=== PATIENT | male | born 1995 | race Caucasian/White ===

== ENCOUNTER 2017-07-06 16:41 | Emergency (ER) | payer BC ==
[2017-07-06] MEDS ORDERED: Norflex 60 MG/2 ML IM ONE (17:06)
[2017-07-06] MEDS ORDERED: DECADRON 10MG INJ. ONE (17:09)
[2017-07-06] MEDS ORDERED: Norflex 60 MG/2 ML ONE (17:09)
[2017-07-06] MEDS: DECADRON 10MG INJ. IM ONE ×2 (17:12→17:13)
--- NOTE | 2017-07-06 17:28 | ERPHSYRPT ---
- History of Present Illness Time Seen by Provider: 07/06/17 16:47 Source: patient, family (mother) Exam Limitations: no limitations Patient Subjective Stated Complaint: tensed up causing pain in posterior neck. denies direct injury.. pain with turning head. Triage Nursing Assessment: staes was upset and tensed up neck. noted difficutly turning head left and right. no direct injury to the neck. staes ariel on palpation to posterionr neck. noted generalized rash to torso. mother states has been there for years but do not have a diagnosos for what it is. denies itching. Physician History: patient upset and workign out and felt his neck tighten up; no injury or fall; no numbness or paraesthsias; some tightness and discomfort with extreme extention or rotation to leftl; prior hx of neck strain Timing/Duration: today, hour(s) (2-3 hrs), gradual onset, improved (after mortin ) Method of Injury: prior injury, twisted Quality: cramping Back Pain Location: C-spine Severity of Pain-Max: moderate Severity of Pain-Current: mild Modifying Factors: Improves With: immobilization (helps), movement (aggravates) , pain medication (helps) Associated Symptoms: muscle spasms, No urinary incontinence, No loss of bowel control, No problems urinating, No numbness in legs/feet, No weakness, No sensory/motor loss, No tingling in legs/feet, No lower back pain Previous symptoms: same symptoms as today Allergies/Adverse Reactions: No Known Drug Allergies Allergy (Verified 07/06/17 17:04) Home Medications: Sertraline HCl [Zoloft] 50 mg PO DAILY 12/28/14 [History] Hx Tetanus, Diphtheria Vaccination/Date Given: Yes Hx Influenza Vaccination/Date Given: No Hx Pneumococcal Vaccination/Date Given: No Immunizations Up to Date: Yes - Review of Systems Constitutional: No Symptoms Eyes: No Symptoms Ears, Nose, & Throat: No Symptoms Respiratory: No Cough, No Dyspnea, No Wheezing Cardiac: No Chest Pain, No Palpitations, No Syncope Abdominal/Gastrointestinal: No Abdominal Pain, No Nausea, No Vomiting, No Diarrhea Genitourinary Symptoms: No Frequency, No Hematuria, No Incontinence, No Urinary Retention Musculoskeletal: Neck Pain, No Arthralgias, No Back Pain, No Fall, No Myalgias Skin: Rash (x 1 year), No Cellulitis, No Induration Neurological: No Focal Weakness, No Headache, No Paralysis, No Parasthesia, No Sensory Changes Psychological: No Symptoms Endocrine: No Symptoms Hematologic/Lymphatic: No Symptoms Immunological/Allergic: No Symptoms - Past Medical History Pertinent Past Medical History: Yes Neurological History: No Pertinent History ENT History: No Pertinent History Cardiac History: No Pertinent History Respiratory History: Asthma Endocrine Medical History: No Pertinent History Musculoskeletal History: No Pertinent History GI Medical History: No Pertinent History History: No Pertinent History Psycho-Social History: Depression Male Reproductive Disorders: No Pertinent History - Past Surgical History Past Surgical History: Yes Musculoskeletal: Other Other Surgical History: states hip surgery x2 - Social History Smoking Status: Current some day smoker Exposure to second hand smoke: No Alcohol Use: Socially Drug Use: none Patient Lives Alone: No Significant Family History: no pertinent family hx - Nursing Vital Signs Nursing Vital Signs: Initial Vital Signs Temperature 97.8 F 07/06/17 16:50 Pulse Rate 70 07/06/17 16:50 Respiratory Rate 20 07/06/17 16:50 Blood Pressure 138/92 07/06/17 16:50 O2 Sat by Pulse Oximetry 98 07/06/17 16:50 Pain Scale Pain Intensity 4 - Physical Exam General Appearance: mild distress, alert, thin Eye Exam: PERRL/EOMI, eyes nml inspection Ears, Nose, Throat Exam: normal ENT inspection, TMs normal, pharynx normal, moist mucous membranes Neck Exam: normal inspection, non-tender, supple, full range of motion (some discomfort at extrem extention or rotation to left), No meningismus, No carotid bruit, No JVD, No limited range of motion, No subcutaneous emphysema, No midline tenderness Respiratory Exam: normal breath sounds, lungs clear, airway intact, No chest tenderness, No respiratory distress Cardiovascular Exam: regular rate/rhythm, normal heart sounds, normal peripheral pulses, capillary refill <2 sec, No murmur Gastrointestinal Exam: soft, normal bowel sounds, No tenderness, No organomegaly Rectal Exam: deferred Back Exam: normal inspection, normal range of motion, No CVA tenderness, No vertebral tenderness Extremity Exam: normal inspection, normal range of motion, No sugey's sign, No pedal edema Peripheral Pulses: carotid (R): 4+, carotid (L): 4+, femoral (R): 4+, femoral (L ): 4+ Neurologic Exam: alert, oriented x 3, cooperative, medical staff physician II-XII nml as tested, normal mood/affect, nml cerebellar function, nml station & gait, sensation nml, No motor deficits Skin Exam: normal color, warm, dry, rash (diffuse ptariasis rosacea), No petechiae SpO2 Interpretation: normal SpO2: 98 Oxygen Delivery: Room Air - Course Nursing assessment & vital signs reviewed: Yes Ordered Tests: Active Orders 24 hr Category Date Time Status Cold Application STAT Care 07/06/17 17:07 Active Re-Check Vital Signs STAT Care 07/06/17 17:06 Active Medication Summary Discontinued Medications Generic Name Dose Route Start Last Admin Trade Name Freq PRN Reason Stop Dose Admin Dexamethasone Sodium Phosphate 10 mg 07/06/17 17:06 07/06/17 17:13 Decadron 10mg Inj. IM 07/06/17 17:07 10 mg STAT ONE Administration Dexamethasone Sodium Phosphate Confirm 07/06/17 17:09 Decadron 10mg Inj. Administered 07/06/17 17:10 Dose 10 mg .ROUTE .STK-MED ONE Orphenadrine Citrate 60 mg 07/06/17 17:06 07/06/17 17:19 Norflex 60 Mg/2 Ml IM 07/06/17 17:07 60 mg STAT ONE Administration Orphenadrine Citrate Confirm 07/06/17 17:09 Norflex 60 Mg/2 Ml Administered 07/06/17 17:10 Dose 60 mg .ROUTE .STK-MED ONE - Progress Progress: improved (after meds), pain not gone completely, re-examined (after meds) Progress Note: 07/06/17 17:28 medicated; mother at bedside; discussed rash ; will medicate and recheck 07/06/17 17:57 patient much improved post meds; treatment plan and instructions given Counseled pt/family regarding: diagnosis, need for follow-up - Departure Time of Disposition: 17:58 Departure Disposition: Home Clinical Impression: Neck muscle strain Condition: Stable Critical Care Time: No Referrals: TEN PARRISH NP [Primary Care Provider] - Instructions: Cervical Strain Additional Instructions: rest- no work 24 hours; RICE continue motirn prn Back pain instructions. Rest, ice x 24-48 hours, then warm compresses; no heavy lifting (>20#'s) x 3-5 days; call [facility] or [facility] doctor in am for follow up appointment and or referral as needed. Return if problems. Take meds as prescribed. Follow-up with family doctor as directed. Call for appointment. Return if any problems. If you smoke please stop. Call or follow up with your family doctor for assistance if you need it to stop. Please wear your seatbelt when driving. Have a nice day. Thank you for allowing us to participate in your care today. :o) Dr Josias Colbert Prescriptions: Chlorzoxazone [Parafon Forte Dsc] 500 mg PO QID #20 tablet
[2017-07-06 18:12] VITALS: BP 110/66; PULSE 60; O2SAT 100
== END 2017-07-06 18:13 | disposition home or self-care (01) ==
LOC: ED 16:41
DX: S16.1XXA Strain of muscle, fascia and tendon at neck level, initial encounter (principal)
CPT/HCPCS: 96372; 99284; J1100; J2360

== ENCOUNTER 2021-03-02 00:54 | Emergency (ER) | payer BC ==
[2021-03-02 01:10] VITALS: O2SAT 99
[2021-03-02] MEDS ORDERED: Sodium Chloride 0.9% 1000 ML 1,000 ML IV STA ×2 (01:11→03:15)
--- NOTE | 2021-03-02 01:17 | ERPHSYRPT ---
- History of Present Illness Time Seen by Provider: 03/02/21 01:16 Historian: patient Physician History: Patient is a 25-year-old male presents to our ED with complaints of nausea vomiting diarrhea and mild right sided abdominal pain. Symptoms started today at approximately 8 PM. Emesis is nonbloody nonbilious. No trauma. No fever. No obvious sick contacts. Symptoms are mild to moderate in intensity. No specific worsening improving factors. Patient otherwise voices no other complaints or concerns at this time. Timing/Duration: today Activities at Onset: none Quality: aching Abdominal Pain Onset Location: RUQ, epigastric Pain Radiation: no radiation Severity of Pain-Max: moderate Severity of Pain-Current: mild Modifying Factors: Improves With: nothing Associated Symptoms: denies symptoms, No chest pain, No diaphoresis, No fever/chills, No headache, No loss of appetite, No shortness of breath, No weakness Previous symptoms: no prior history Allergies/Adverse Reactions: No Known Drug Allergies Allergy (Verified 03/02/21 01:27) Home Medications: Levothyroxine Sodium [Levothyroxine] 150 mcg PO DAILY 03/02/21 [History] Hx Tetanus, Diphtheria Vaccination/Date Given: Yes Hx Influenza Vaccination/Date Given: No Hx Pneumococcal Vaccination/Date Given: No - Review of Systems Constitutional: No Symptoms, No Fever, No Chills Eyes: No Symptoms Ears, Nose, & Throat: No Symptoms Respiratory: No Symptoms, No Cough, No Dyspnea Cardiac: No Symptoms, No Chest Pain, No Edema, No Syncope Abdominal/Gastrointestinal: No Symptoms, No Abdominal Pain, No Nausea, No Vomiting, No Diarrhea Genitourinary Symptoms: No Symptoms, No Dysuria Musculoskeletal: No Symptoms, No Back Pain, No Neck Pain Skin: No Symptoms, No Rash Neurological: No Dizziness, No Focal Weakness, No Sensory Changes Psychological: No Symptoms Endocrine: No Symptoms Hematologic/Lymphatic: No Symptoms Immunological/Allergic: No Symptoms All Other Systems: Reviewed and Negative - Past Medical History Pertinent Past Medical History: Yes Neurological History: No Pertinent History ENT History: No Pertinent History Cardiac History: No Pertinent History Respiratory History: Asthma Endocrine Medical History: No Pertinent History Musculoskeletal History: No Pertinent History GI Medical History: No Pertinent History History: No Pertinent History Psycho-Social History: Depression Male Reproductive Disorders: No Pertinent History - Past Surgical History Past Surgical History: Yes Musculoskeletal: Other Other Surgical History: states hip surgery x2 - Social History Smoking Status: Current some day smoker Exposure to second hand smoke: No Alcohol Use: Socially Drug Use: none Patient Lives Alone: No Significant Family History: no pertinent family hx - Nursing Vital Signs Nursing Vital Signs: Initial Vital Signs Temperature 98.3 F 03/02/21 01:09 Pulse Rate 96 H 03/02/21 01:09 Respiratory Rate 18 03/02/21 01:09 Blood Pressure 134/76 03/02/21 01:09 O2 Sat by Pulse Oximetry 99 03/02/21 01:09 Pain Scale Pain Intensity 4 - Physical Exam General Appearance: no apparent distress, alert Eye Exam: PERRL/EOMI, eyes nml inspection Ears, Nose, Throat Exam: normal ENT inspection, pharynx normal, moist mucous membranes Neck Exam: normal inspection, non-tender, supple, full range of motion Respiratory Exam: normal breath sounds, lungs clear, No respiratory distress Cardiovascular Exam: regular rate/rhythm, normal heart sounds Gastrointestinal/Abdomen Exam: soft, tenderness, other (Mild epigastric/right upper quadrant tenderness to palpation. No rebound. No guarding), No mass, No guarding, No pulsatile mass, No rebound, No hernia, No organomegaly, No splenomegaly Back Exam: normal inspection, normal range of motion, No CVA tenderness, No vert ebral tenderness Extremity Exam: normal inspection, normal range of motion, pelvis stable Neurologic Exam: alert, oriented x 3, cooperative, normal mood/affect, nml cerebellar function, sensation nml, No motor deficits Skin Exam: normal color, warm, dry SpO2 Interpretation: normal SpO2: 99 O2 Delivery: Room Air - Course Nursing assessment & vital signs reviewed: Yes - CT Exams Abdomen/Pelvis CT Interpretation: Tele-radiologist Report (Enteritis affecting the distal ileum moderate length of distal ileum with mild circumferential wall thickening and minimal mesenteric fat stranding. Relatively decompressed terminal ileum. Fluid in the ascending colon.) Ordered Tests: Active Orders 24 hr Category Date Time Status IV Insertion STAT Care 03/02/21 01:11 Active ABDOMEN AND PELVIS W CONTRAST [CT] Stat Exams 03/02/21 01:14 Taken CBC W DIFF Stat Lab 03/02/21 01:30 Completed CMP Stat Lab 03/02/21 01:30 Completed LIPASE Stat Lab 03/02/21 01:30 Completed TROPONIN Q3H Lab 03/02/21 01:30 Completed TROPONIN Q3H Lab 03/02/21 04:15 Ordered TROPONIN Q3H Lab 03/02/21 07:15 Ordered TROPONIN Q3H Lab 03/02/21 10:15 Ordered TROPONIN Q3H Lab 03/02/21 13:15 Ordered UA W/RFX UR CULTURE Stat Lab 03/02/21 02:39 Completed Medication Summary Generic Name Dose Route Start Last Admin Trade Name Freq PRN Reason Stop Dose Admin Sodium Chloride 1,000 mls @ 999 mls/hr 03/02/21 03:15 03/02/21 03:20 Sodium Chloride 0.9% 1000 Ml IV 03/02/21 04:15 999 mls/hr .Q1H1M STA Administration Discontinued Medications Generic Name Dose Route Start Last Admin Trade Name Freq PRN Reason Stop Dose Admin Sodium Chloride 1,000 mls @ 999 mls/hr 03/02/21 01:11 03/02/21 01:36 Sodium Chloride 0.9% 1000 Ml IV 03/02/21 02:11 999 mls/hr .Q1H1M STA Administration Sodium Chloride Confirm 03/02/21 01:34 Sodium Chloride 0.9% 1000 Ml Administered 03/02/21 01:35 Dose 1,000 mls @ ud .ROUTE .STK-MED ONE Sodium Chloride Confirm 03/02/21 03:17 Sodium Chloride 0.9% 1000 Ml Administered 03/02/21 03:18 Dose 1,000 mls @ ud .ROUTE .STK-MED ONE Lab/Rad Data: Laboratory Result Diagrams 03/02/21 01:30 03/02/21 01:30 Laboratory Results 03/02/21 03/02/21 03/02/21 Range/Units 02:39 01:30 01:30 WBC (4.0-10.5) K/mm3 RBC (4.1-5.6) M/mm3 Hgb (12.5-18.0) gm/dl Hct (42-50) % MCV (78-100) fl MCH (26-32) pg MCHC (32-36) g/dl RDW (11.5-14.0) % Plt Count (150-450) K/mm3 MPV (7.5-11.0) fl Gran % (36.0-66.0) % Eos # (Auto) (0-0.5) Absolute Lymphs (auto) (1.0-4.6) Absolute Monos (auto) (0.0-1.3) Lymphocytes % (24.0-44.0) % Monocytes % (0.0-12.0) % Eosinophils % (0.00-5.0) % Basophils % (0.0-0.4) % Absolute Granulocytes (1.4-6.9) Basophils # (0-0.4) Sodium 139 (137-145) mmol/L Potassium 3.8 (3.5-5.1) mmol/L Chloride 100 (98-107) mmol/L Carbon Dioxide 29 (22-30) mmol/L Anion Gap 14.2 (5-15) MEQ/L BUN 18 (9-20) mg/dL Creatinine 0.98 (0.66-1.25) mg/dL Estimated GFR > 60.0 ML/MIN Glucose 94 (74-106) mg/dL Calcium 10.5 H (8.4-10.2) mg/dL Total Bilirubin 0.70 (0.2-1.3) mg/dL AST 23 (17-59) U/L ALT 21 (0-50) U/L Alkaline Phosphatase 56 (38-126) U/L Troponin I < 0.012 (0.000-0.034) ng/mL Serum Total Protein 8.1 (6.3-8.2) g/dL Albumin 5.3 H (3.5-5.0) g/dL Lipase 122 (23-300) U/L Urine Color STRAW (YELLOW) Urine Appearance CLEAR (CLEAR) Urine pH 7.0 (5-6) Ur Specific Sidney >1.060 (1.005-1.025) Urine Protein NEGATIVE (Negative) Urine Ketones NEGATIVE (NEGATIVE) Urine Blood NEGATIVE (0-5) Cedric/ul Urine Nitrite NEGATIVE (NEGATIVE) Urine Bilirubin NEGATIVE (NEGATIVE) Urine Urobilinogen NEGATIVE (0-1) mg/dL Ur Leukocyte Esterase NEGATIVE (NEGATIVE) Urine WBC (Auto) NONE (0-5) /HPF Urine RBC (Auto) NONE (0-2) /HPF U Epithel Cells (Auto) NONE (FEW) /HPF Urine Bacteria (Auto) NONE (NEGATIVE) /HPF Urine Culture Reflexed NO (NO) Urine Glucose NEGATIVE (NEGATIVE) mg/dL 03/02/21 Range/Units 01:30 WBC 10.6 H (4.0-10.5) K/mm3 RBC 5.37 (4.1-5.6) M/mm3 Hgb 15.6 (12.5-18.0) gm/dl Hct 45.5 (42-50) % MCV 84.7 (78-100) fl MCH 29.1 (26-32) pg MCHC 34.3 (32-36) g/dl RDW 13.8 (11.5-14.0) % Plt Count 166 (150-450) K/mm3 MPV 11.4 H (7.5-11.0) fl Gran % 79.5 H (36.0-66.0) % Eos # (Auto) 0.14 (0-0.5) Absolute Lymphs (auto) 1.17 (1.0-4.6) Absolute Monos (auto) 0.84 (0.0-1.3) Lymphocytes % 11.0 L (24.0-44.0) % Monocytes % 7.9 (0.0-12.0) % Eosinophils % 1.3 (0.00-5.0) % Basophils % 0.3 (0.0-0.4) % Absolute Granulocytes 8.43 H (1.4-6.9) Basophils # 0.03 (0-0.4) Sodium (137-145) mmol/L Potassium (3.5-5.1) mmol/L Chloride (98-107) mmol/L Carbon Dioxide (22-30) mmol/L Anion Gap (5-15) MEQ/L BUN (9-20) mg/dL Creatinine (0.66-1.25) mg/dL Estimated GFR ML/MIN Glucose (74-106) mg/dL Calcium (8.4-10.2) mg/dL Total Bilirubin (0.2-1.3) mg/dL AST (17-59) U/L ALT (0-50) U/L Alkaline Phosphatase (38-126) U/L Troponin I (0.000-0.034) ng/mL Serum Total Protein (6.3-8.2) g/dL Albumin (3.5-5.0) g/dL Lipase (23-300) U/L Urine Color (YELLOW) Urine Appearance (CLEAR) Urine pH (5-6) Ur Specific Sidney (1.005-1.025) Urine Protein (Negative) Urine Ketones (NEGATIVE) Urine Blood (0-5) Cedric/ul Urine Nitrite (NEGATIVE) Urine Bilirubin (NEGATIVE) Urine Urobilinogen (0-1) mg/dL Ur Leukocyte Esterase (NEGATIVE) Urine WBC (Auto) (0-5) /HPF Urine RBC (Auto) (0-2) /HPF U Epithel Cells (Auto) (FEW) /HPF Urine Bacteria (Auto) (NEGATIVE) /HPF Urine Culture Reflexed (NO) Urine Glucose (NEGATIVE) mg/dL - Progress Progress: improved Progress Note: Patient reassessed. He feels well. Patient hydrated. Patient tolerated p.o. Work-up reveals a leukocytosis with an enteritis. There is also nonspecific splenic lesion. Will discharge home. Work note provided. Patient agrees to follow-up with his primary care doctor within 48 hours for reevaluation. 03/02/21 03:34 Counseled pt/family regarding: lab results, diagnosis, rad results - Departure Departure Disposition: Home Clinical Impression: Leukocytosis, Enteritis, Diarrhea, Splenic lesion Condition: Stable Critical Care Time: No Referrals: JESÚS THAYER [Primary Care Provider] - Forms: Work/School Release Form Prescriptions: Ondansetron ODT 4 MG [Zofran Odt 4 mg] 4 mg PO Q6H PRN PRN #10 tab.rapdis PRN Reason: Vomiting
[2021-03-02] MEDS ORDERED: Sodium Chloride 0.9% 1000 ML 1,000 ML ONE ×2 (01:34→03:17)
[2021-03-02 01:37] LABS: Absolute Neutrophil Ct (ANC) 8.43 (1.4-6.9); BASOPHIL % 0.3 % (0.0-0.4); Basophil (Absolute #) 0.03 (0-0.4); Eosinophil % 1.3 % (0.00-5.0); Eosinophil (Absolute #) 0.14 (0-0.5); Hematocrit 45.5 % (42-50); Hemoglobin 15.6 gm/dl (12.5-18.0); Lymphocyte (Absolute #) 1.17 (1.0-4.6); Mean Cell Volume 84.7 fl (78-100); Mean Corpuscular Hemoglobin 29.1 pg (26-32); Mean Corpuscular Hgb Concent. 34.3 g/dl (32-36); Mean Platelet Volume 11.4 fl (7.5-11.0); Monocyte (Absolute #) 0.84 (0.0-1.3); Monocytes % 7.9 % (0.0-12.0); Neutrophil % 79.5 % (36.0-66.0); Platelet Count 166 K/mm3 (150-450); Red Blood Count 5.37 M/mm3 (4.1-5.6); Red Cell Distribution Width 13.8 % (11.5-14.0); White Blood Count 10.6 K/mm3 (4.0-10.5)
[2021-03-02 01:54] LABS: ALBUMIN 5.3 g/dL (3.5-5.0); ALKALINE PHOSPHATASE 56 U/L (38-126); ANION GAP 14.2 MEQ/L (5-15); BLOOD UREA NITROGEN 18 mg/dL (9-20); CHLORIDE 100 mmol/L (98-107); Calcium 10.5 mg/dL (8.4-10.2); Carbon Dioxide 29 mmol/L (22-30); Creatinine 1 0.98 mg/dL (0.66-1.25); EST GLOMERULAR FILTRATION RATE > 60.0 ML/MIN; Glucose 94 mg/dL (74-106); LIPASE 122 U/L (23-300); Potassium 3.8 mmol/L (3.5-5.1); SGOT/AST 23 U/L (17-59); SGPT/ALT 21 U/L (0-50); SODIUM 139 mmol/L (137-145); Total Protein 8.1 g/dL (6.3-8.2)
[2021-03-02 02:55] LABS: Appearance CLEAR (CLEAR); Bilirubin NEGATIVE (NEGATIVE); Blood NEGATIVE Ery/ul (0-5); Glucose NEGATIVE (NEGATIVE); Ketones NEGATIVE (NEGATIVE); Leukocyte Esterase NEGATIVE (NEGATIVE); Nitrite NEGATIVE (NEGATIVE); Protein,Urine Dip NEGATIVE (Negative); Specific Gravity >1.060 (1.005-1.025); Urobilinogen NEGATIVE mg/dL (0-1)
[2021-03-02 04:48] VITALS: BP 130/72; PULSE 98
--- NOTE | 2021-03-02 08:46 | XRAY ---
Indication: Right abdomen/pelvis pain. Nausea, vomiting, diarrhea, and elevated WBC. Multiple contiguous axial images obtained through the abdomen and pelvis using 80 cc Isovue 370 contrast. Comparison: None Lung bases are clear. Heart is not enlarged. Small hiatal hernia. Noncontrasted stomach and bowel loops appear nonobstructed. Pelvic small bowel loops are mildly fluid distended with mild wall thickening/enhancement favoring enteritis. No free fluid/air. Normal appendix. There is moderate diffuse scattered colonic fecal debris throughout. Spleen is enlarged measuring 14.8 cm with a 4.5 cm cyst and tiny calcified granuloma. Remaining liver, gallbladder, pancreas, spleen, adrenal glands, kidneys, ureters, bladder, and aorta appear unremarkable. No pathologic retroperitoneal lymphadenopathy. Osseous structures intact. Impression: 1. Mild fluid distended small bowel loops with wall thickening/enhancement favoring enteritis. 2. Incidental splenomegaly with 4.5 cm cyst and small hiatal hernia. Comment: Preliminary interpretation was made by [facility]. No critical discrepancy.
== END 2021-03-02 04:51 | disposition home or self-care (01) ==
LOC: ED 00:54
DX: D72.829 Elevated white blood cell count, unspecified (principal); K52.9 Noninfective gastroenteritis and colitis, unspecified; R19.7 Diarrhea, unspecified; D73.89 Other diseases of spleen
CPT/HCPCS: 36000; 36415; 74177; 80053; 81001; 83690; 84484; 85025; 87328; 87329; 99284; U0003; 96360; 96361